=== PATIENT | male | born 1980 | race Caucasian/White ===

== ENCOUNTER 2023-11-14 07:00 | Emergency (ER) | payer OTHER, SELFPAY ==
[2023-11-14] VITALS (21 sets, daily range): BP systolic 160–197; BP diastolic 92–116; PULSE 75; RESP 18; TEMP 36.3–36.7; O2SAT 84–97
--- NOTE | ~2023-11-14 | CT_ITS ---
CT of the Abdomen and Pelvis: Indication: Abdominal pain Technique: 2.5 mm axial scans were obtained through the abdomen and pelvis following intravenous adm inistration of 100 cc of Omnipaque 350. Dose reduction technique was used on this scan by utilizing a utomated exposure control and iterative reconstruction technique. The dose-length product (DLP) was 1 706.18 mGy-cm. Findings: Scans through the lung bases are unremarkable. The liver, spleen, pancreas, adrenals and kidneys are within normal limits. No evidence of aortic an eurysm. Gallbladder is somewhat distended, questionable minimal wall thickening or adjacent inflammat ory change near the neck. There are mildly prominent elena hepatis/peripancreatic lymph nodes, nonspe cific.. No bowel obstruction. Questionable wall thickening distal sigmoid colon/rectum versus underdistention .. Images through the pelvis were performed. Urinary bladder unremarkable. No pelvic mass seen. No ascit es. Impression: Questionable minimal gallbladder wall thickening and/or inflammatory change near the gallbladder neck . Correlate clinically. Consider ultrasound and/or HIDA scan for further evaluation as indicated. Mild prominent elena hepatis/peripancreatic lymph nodes, nonspecific, most likely reactive. Questionable wall thickening distal sigmoid colon/rectum versus underdistention. Correlate for any po ssibility of colitis, or less likely, neoplastic disease. Reviewed, dictated and finalized at [facility]. FOLDER Impression: Questionable minimal gallbladder wall thickening and/or inflammatory change jose r the gallbladder neck. Correlate clinically. Consider ultrasound and/or HIDA s can for further evaluation as indicated. Mild prominent elena hepatis/peripancreatic lymph nodes, nonspecific, most like ly reactive. Questionable wall thickening distal sigmoid colon/rectum versus underdistention . Correlate for any possibility of colitis, or less likely, neoplastic disease.
--- NOTE | ~2023-11-14 | US_ITS ---
US abdomen limited DATE: 11/14/2023 08:52 INDICATION: Abdominal pain TECHNIQUE: Real-time imaging of liver, pancreas, gallbladder areas COMPARISON: 11/14/2023 CT abdomen pelvis FINDINGS: The pancreas is obscured. There are multiple filling defects with shadowing in the gallbladder lumen consistent with cholelithi asis. The gallbladder is moderately distended with wall thickness measuring up to 4.4 mm. Sonographic Cuenca sign is negative. The patient is reportedly on pain medication, which limits the value of thi s sign. Hepatic steatosis. Normal hepatopedal portal venous flow direction. The common bile duct is of normal caliber. IMPRESSION: Cholelithiasis Gallbladder wall thickening; consider acute cholecystitis Hepatic steatosis Reviewed, dictated and finalized at [facility]. Reviewed, dictated and finalized at [facility]. N FARMWORKER
--- NOTE | 2023-11-14 07:12 | ECG_ITS ---
Measurements Intervals [place] Rate: 73 P: -1 CA: 189 QRS: -7 QRSD: 85 T: 14 QT: 369 QTc: 408 Interpretive Statements SINUS RHYTHM VOLTAGE CRITERIA FOR LVH BORDERLINE ECG NO PREVIOUS ECG AVAILABLE FOR COMPARISON Electronically Signed On 11-14-2023 9:10:03 MEDICAL LAB SCIENTIST by Alok Russell D.O.
[2023-11-14] MEDS: ONDANSETRON INJ 4 MG/2 ML VIAL IV PUSH (07:18)
[2023-11-14] MEDS: SODIUM CHLORIDE 0.9% IV 1,000 ML 999 ML IV CONT (07:22)
[2023-11-14 07:24] LABS: Basophils Absolute Auto 0.02 K/mm3 (0.00-0.10); Basophils Percent Auto 0.5 % (0.0-1.0); Eosinophils Absolute Auto 0.06 K/mm3 (0.02-0.50); Eosinophils Percent Auto 1.4 % (1.0-6.0); Hematocrit 45.4 % (40.0-54.0); Hemoglobin 15.8 g/dL (14.0-18.0); Immature Granulocyte Absolute 0.01 K/mm3 (0.00-0.00); Immature Granulocyte Percent A 0.2 % (0.0-0.0); Immature Platelet Fraction Pct 2.4 % (1.0-7.0); Lymphocytes Absolute Auto 0.83 K/mm3 (1.10-4.50); Mean Corpuscular HGB Conc 34.8 g/dL (32.0-36.0); Mean Corpuscular Hemoglobin 30.6 pg (27.0-31.0); Mean Corpuscular Volume 87.8 fL (78.0-102.0); Mean Platelet Volume 10.1 fl (8.7-11.0); Monocytes Absolute Auto 0.21 K/mm3 (0.10-0.90); Monocytes Percent Auto 5.1 % (2.0-11.0); Neutrophils Percent Auto 72.8 % (50.0-70.0); Platelet Count Result 60 K/mm3 (150-420); Red Blood Count 5.17 M/mm3 (4.70-6.10); Red Cell Distribution Width 12.3 % (11.6-14.4); White Blood Count 4.1 K/mm3 (4.8-10.8)
[2023-11-14 07:34] LABS: Appearance Urine Clear (Clear); Bilirubin Urine 1+ (Negative); Blood Urine 1+ (Negative); Color Urine Yellow (Yellow); Glucose Urine UA Negative (Negative); Ketones Urine 1+ (Negative); Leukocyte Esterase Ur Negative LEU/UL (Negative); Nitrate Urine Negative (Negative); Protein Urine 1+ (Negative); Specific Grav Ur >= 1.030 (1.010-1.020); pH Urine 5.5 (5.0-8.0)
[2023-11-14] MEDS: MORPHINE SULFATE (*CRX) 4 MG/ML INJ IV PUSH (07:35)
[2023-11-14 07:37] LABS: INR 0.9; Prothrombin Time 10.2 Seconds (9.50-12.10)
[2023-11-14 07:42] LABS: Add Urine Microscopic? YES; Bacteria Urine Trace /hpf; WBC Urine None seen /hpf (0-3)
[2023-11-14 07:43] LABS: Lactic Acid Reflex 1.9 mmol/L (0.4-2.0)
[2023-11-14 07:44] LABS: Alanine Aminotransferase 52 U/L (16-63); Albumin Level 3.7 g/dL (3.4-5.0); Alkaline Phosphatase 71 U/L (46-116); Anion Gap 12 mmol/L (8-16); Aspartate Amino Transferase 21 U/L (15-37); Bilirubin,Total 0.5 mg/dL (0.00-1.00); Blood Urea Nitrogen 18 mg/dL (7-18); Calcium 8.8 mg/dL (8.5-10.1); Carbon Dioxide 25 mmol/L (21-32); Chloride 101 mmol/L (98-108); Estimated CRCL calculation 119 ml/min; Estimated Glomerular Filt Rate > 60; Glucose 167 mg/dL (70-99); Lipase 74 U/L (16-77); Osmolality Calculated 291 mOsm/kg (285-295); Potassium 3.8 mmol/L (3.5-5.1); Sodium 138 mmol/L (136-145); Total Protein 7.5 g/dL (6.4-8.2); Troponin I 6.2 ng/L (0.00-60.4)
[2023-11-14 08:19] LABS: Influenza A QL RT-PCR Negative (Negative); Influenza B QL RT-PCR Negative (Negative); RSV RNA, RT-PCR Negative (Negative); SARS-CoV-2 RNA PCR Negative (Negative)
--- NOTE | 2023-11-14 08:52 | ED.ABDPAIN ---
HPI - Abdominal Pain General Chief Complaint: Abdominal Pain Stated Complaint: abdominal pain Time Seen by Provider: 11/14/23 07:08 Source: patient and family Mode of arrival: ambulatory Limitations: no limitations History of Present Illness HPI narrative: this is male of hypertension that presents with a 4 day history pain with nausea loose stools , fevers at home ,with no chest pain shortness. Been having symptoms over the last 4 days just getting worse unable to and did not take his blood pressure medication because of the nausea and vomiting. Patient with no flank pain no dysuria no hematuria MD elicited complaint: abdominal pain Onset (ago): day(s) Pain Consistency: constant Location: diffuse Severity: severe Pain scale (0-10): 8 Quality: cramping Migration to: no migration Exacerbating factors: vomiting Related Data Home Medications Medication Instructions Recorded Confirmed citalopram 40 mg tablet 40 mg PO DAILY 11/14/23 11/14/23 metoprolol succinate 50 mg 50 mg PO DAILY 11/14/23 11/14/23 tablet,extended release 24 hr Allergies Allergy/AdvReac Type Severity Reaction Status Date / Time No Known Allergies Allergy Verified 11/14/23 07:14 Review of Systems Review of Systems: All systems reviewed & are unremarkable except as noted in HPI and below PMFSH Past Medical History Medical History HTN (hypertension) Exam Const: General: healthy appearing and no acute distress Nutritional Appearance: obese Orientation/consciousness: patient oriented x3 Limitations: no limitations Chest: Chest palpation & inspection: normal inspection of the chest Resp: Effort & Inspection: normal respiratory effort Auscultation: clear to auscultation bilaterally Cardio: Rate: regular rate Rhythm: regular rhythm GI: GI Palp: Yes Soft to palpation and Yes Tenderness to palpation present (GI) Auscultation: normal bowel sounds Other: diffuse abdominal tenderness but hard to elicit but with deep inspiration was having right upper quadrant pain consistent with a positive Cuenca sign. : General: Yes bladder normal to palpation Skin: General skin exam: normal color Rashes: no rashes Neuro: General: patient oriented x3, moves all extremities and no meningeal signs Extrem: General: normal to inspection and no clubbing, cyanosis or edema Psych: Mental Status: mental status grossly normal Course Course Emergency Course: patient received IV fluids and pain control with morphine and control of his nausea vomiting with Zofran after reassessment patient states that abdominal pain has eased. Patient had a CT scan which shows mild dilatation of the gallbladder and ultrasound of the gallbladder recommended, otherwise CT scan did show some inflammation of consistent with a colitis. Patient had a blood workup that was unremarkable with normal white count and COVID influenza RSV negative. ultrasound performed consistent with some acute cholecystitis. patient with a normal white count, spoke with surgery at [facility] and feels that he can go home with pain control and follow-up with surgery at [facility] on Saturday. Vital Signs Vital signs: Vital Signs Temperature 36.3 C L 11/14/23 07:00 Pulse Rate 75 11/14/23 07:00 Respiratory Rate 18 11/14/23 07:00 Blood Pressure 160/104 H 11/14/23 07:00 Pulse Oximetry 96 11/14/23 07:00 Oxygen Delivery Room Air 11/14/23 07:00 Temperature 36.3 C L 11/14/23 07:00 Pulse Rate 75 11/14/23 07:00 Respiratory Rate 18 11/14/23 07:00 Blood Pressure 160/104 H 11/14/23 07:00 Pulse Oximetry 96 11/14/23 07:00 Oxygen Delivery Room Air 11/14/23 07:00 MDM - Abdominal Pain Lab Data 11/14/23 07:12 11/14/23 07:12 Labs: Lab Results 11/14/23 11/14/23 Range/Units 07:12 07:14 WBC 4.1 L (4.8-10.8) K/mm3 RBC 5.17 (4.70-6.10) M/mm3 Hgb 15.8 (14
[2023-11-14] MEDS: HYDROmorphone HCL INJ (*CRX) 2 MG/ML VIAL 1 MG IV PUSH (09:22)
--- NOTE | 2023-11-14 10:35 | PC.NURSE ---
blood cultures obtained, RN to start antibiotics now.
[2023-11-14] MEDS: PIPERACILLN/TAZ 3.375GM/NS50ML 3.375 GM/50 ML BAG IVPB (10:36)
--- NOTE | 2023-11-20 12:46 | PC.NURSE ---
FINAL BLOOD CULTURE RESULTS X2: NO GROWTH AFTER 5 DAYS. NO ACTION NEEDED.
== END 2023-11-14 11:15 | disposition home or self-care (01) ==
PROVIDERS: Emergency Provider Emergency Medicine; PCP Family Medicine
DX: K81.9 Cholecystitis, unspecified (principal); I10 Essential (primary) hypertension; Z79.899 Other long term (current) drug therapy; Z20.822 Contact with and (suspected) exposure to COVID-19
CPT/HCPCS: 36415; 74177; 76705; 80053; 81001; 83605; 83690; 84484; 85025; 85055; 85610; 85730; 87040; 87637; 93005; 96361; 96365; 96375; 99284; J1170; J2270; J2405; J2543; J7030; Q9967

== ENCOUNTER 2023-11-20 01:20 | Day surgery (SDC) | payer OTHER, SELFPAY ==
[2023-11-18 15:37] VITALS: BMI 40.2
--- NOTE | 2023-11-18 15:38 | PC.NURSE ---
Report to the Outpatient Waiting Room, entrance under the green pavilion located off [facility], at time 8:30 on date 11/20/23. Planned Procedure Time: 10:30. Time changes happen often and if your time is changed the preop area will call you the afternoon before. - You and your visitor will be asked to self-screen and do not enter if you have any COVID symptoms. - A mask is optional within the hospital at this time. Patients may have clear liquids (water, carbonated beverages, clear teas, apple juice) until 3 hours prior to surgery (7:30) with a maximum of 20 ounces. - No food from midnight until time of surgery Take the following medications with a SIP of water the morning of surgery: CITALOPRAM, METOPROLOL, PAIN PILL IF NEEDED DO NOT STOP ANY OF YOUR OTHER PRESCRIPTION MEDICATIONS PRIOR TO SURGERY ?EXCEPT THE FOLLOWING Medications to discontinue per physician: N/A Date to take last dose: N/A Please no make-up, nail portuguese, hairspray, perfume, deodorant, or body powder the day of surgery. No jewelry (including any body piercings) or valuables the day of surgery, leave them at home. Please take a shower or bath the night before, or the morning of, surgery with an antibacterial soap. Wear comfortable, loose fitting clothing. - Jewelry must be removed prior to entering the operating room. Rings and piercings that are not removed may be cut off. - The hospital will not accept responsibility for valuables. - Please leave all valuables, including medications, at home the day of surgery. If you are going home after surgery, a licensed auto parts delivery driver must drive you home. - NO public transportation without another adult if you receive anesthesia. - We recommend that an adult stay with you for 24 hours following discharge. - We also recommend that you do not drive, make important decision, drink alcoholic beverages, or take any drugs that were not prescribed by your health care provider for at least 24 hours after your discharge time. Follow any additional instructions given to you from your surgeon. If you or anyone in your household have experienced Covid symptoms in the past week, please notify your surgeon or the nurse liaison at the phone number below for possible testing. Telephone instructions given to PT - PIERRE BUTCHER and asked if any additional questions and then verbalized understanding. Patient advised to call surgeon office or pre surgery nurse liaison [phone] if any additional questions.
--- NOTE | 2023-11-19 14:54 | P.PNAN_ITS ---
Anes - Initial Pre Proc Eval Procedure: Operation Date: 11/20/23 10:30 Proposed Procedures p Laparoscopic Cholecystectomy - Jerrell Hills MD Date/Time: 11/19/23 14:54 Surgeon: Jerrell Hills MD Pre Op Diagnosis: acute cholecystitis with stones Patient Data Age: 42 Gender: M Height: 1.91 m Weight: 146 kg Allergies Allergy/AdvReac Type Severity Reaction Status Date / Time No Known Allergies Allergy Verified 11/20/23 08:30 Home Medications Medication Instructions Recorded Confirmed Type citalopram 40 mg tablet 40 mg PO DAILY 11/14/23 11/19/23 History metoprolol succinate 50 mg 50 mg PO DAILY 11/14/23 11/19/23 History tablet,extended release 24 hr ondansetron 4 mg disintegrating 4 mg PO Q6H PRN nausea and 11/14/23 11/19/23 Rx tablet vomiting #14 tabs oxycodone-acetaminophen 5 mg-325 1 tablet PO Q4H PRN pain #30 tabs 11/14/23 11/19/23 Rx mg tablet (Percocet) Patient hx anesthesia problems: none Family hx anesthesia problems: none Results Review: All pre-operative results and documents have been reviewed as part of the pre- operative evaluation. [facility] Past Medical History Medical History (Updated 11/19/23 @ 14:54 by Robert Gar DO) Anxiety Depression GERD (gastroesophageal reflux disease) HTN (hypertension) Social History Social History (Updated 11/20/23 @ 09:48 by Robert Gar DO) Smoking packs per day: 1 Smoking cigarettes per day: 20.0 Years smoked: 6 Smoking pack-years: 6.00 Smoking status: Former smoker Tobacco type: cigarettes Smokeless tobacco user: chewing tobacco Smoking end date: 11/04/04 Alcohol intake: current Alcohol use details: RARE Substance use: current Substance use type: marijuana Other substance usage details: daily Living arrangements: with family Spiritual care concerns: No Anes - Eval Final PreProcedure Day of Procedure 11/19/23 14:54 Patient weight: morbidly obese Heart: regular rate and rhythm Lungs: clear to auscultation Airway: Mallampati scale class III Neurological: alert and oriented Last oral intake: >/= 8 hours ASA classification: III Emergent: no Anesthetic plan: proceed Anesthesia type and monitoring: general ETT and standard monitoring Results Review: All pre-operative results and documents have been reviewed as part of the pre- operative evaluation. Informed Consent: The patient's anesthetic plan and its attendant risks and benefits were discussed with the patient/family/POA. Questions were solicited and answers provided to the satisfaction of the patient/family/POA.
[2023-11-20] VITALS (7 sets, daily range): BP systolic 105–154; BP diastolic 52–90; PULSE 71–92; RESP 14–18; TEMP 36.2; O2SAT 92–98
[2023-11-20] MEDS: ACETAMINOPHEN 500 MG TABLET 1000 MG PO (08:43)
[2023-11-20] MEDS: LACTATED RINGERS 1,000 ML 30 ML IV CONT ×2 (08:50→11:38)
[2023-11-20 09:12] LABS: Alanine Aminotransferase 35 U/L (6-50); Albumin Level 4.4 g/dL (3.5-5.1); Alkaline Phosphatase 71 U/L (38-126); Amylase 100 U/L (30-110); Aspartate Amino Transferase 26 U/L (17-59); Bilirubin,Total 0.6 mg/dL (0.2-1.3); Lipase 239 U/L (23-300)
[2023-11-20] MEDS: KETOROLAC 15 MG/ML VIAL (*BKC) IV PUSH (09:36)
--- NOTE | 2023-11-20 09:38 | WPDHPUPDATE1 ---
History and Physical Update Update Date/Time: 11/20/23 09:38 History and Physical has been reviewed, including an updated exam of the patient. There are NO changes in the patient's condition. Risks, benefits, and alternatives have been discussed and questions answered. Patient agrees to proceed with procedure.
[2023-11-20] MEDS: ceFAZolin 3 GM/D5W 100 ML 100 ML IVPB (10:10)
[2023-11-20] MEDS: BUPIVACAINE/EPINEPHRINE 0.5% 30 ML VIAL INFILTRATE (10:36)
--- NOTE | 2023-11-20 11:42 | W.PM.PROC2 ---
Procedure Note - Detailed Date of Procedure 11/20/23 Pre-op Diagnosis acute cholecystitis with stones Post-op Diagnosis Other (Chronic cholecystitis with cholelithiasis) Procedure Performed Laparoscopic cholecystectomy Surgeon Jerrell Hills MD Watch Electrician Delia Rich [facility] Anesthesia General and Local Indications Patient has had severe diffuse abdominal pain associated with nausea vomiting. He has had this in the past but it went away on its own. He presented to the emergency room at [facility] on November 14 with a 4 day history of diffuse abdominal pain vomiting diarrhea and fever. Imaging suggested acute cholecystitis. Patient improved with some analgesics. He was seen in the office earlier this week. He was still having pain with some right upper quadrant tenderness. He is taken to surgery now for laparoscopic cholecystectomy for acute cholecystitis with gallstones. Findings Findings were more consistent with chronic cholecystitis. The gallbladder wall was very thickened. There was chronic inflammation in the cholecystohepatic triangle making that dissection more difficult and a little more bloody. There was no biliary ductal dilatation. Liver appeared to have some fatty change. Description of Procedure Patient was taken to surgery and induced into general anesthesia. The abdomen is prepped and draped. The varies needle was used to insufflate the abdomen prior to placing any trocars. Trocars were then placed using [employer] optical trocars and a 5 mm camera. With the trocars in position the abdomen was insufflated and the patient was placed in reverse Trendelenburg. The gallbladder was thickened but did not have signs of acute inflammation. I tried to decompress the gallbladder with a laparoscopic aspirator. The bile in the gallbladder however was very thick and very little would come out with aspiration. The cholecystotomy was closed with a Vicryl endoloop. The gallbladder was then retracted anterosuperiorly. There were some dense adhesions in the area of the infundibulum. These were taken down using cautery and gentle dissection. Eventually I was able to locate the cystic duct and cystic artery. Cautery was used to take down adhesions associated with these which avoided any significant blood loss. This dissection was continued until we had a reasonable length of cystic duct and cystic artery to clip. The gallbladder was dissected off the liver at its lower 3rd. Critical view was achieved. I securely clipped and divided both the cystic duct and cystic artery. The peritoneum around the remainder of the gallbladder was very thickened, more in a chronic fashion than acute. I dissected the peritoneal attachments of the gallbladder to the liver. I also dissected the gallbladder from the gallbladder fossa of the liver. Cautery was used for hemostasis. Eventually the gallbladder was completely freed from the liver. I checked the gallbladder fossa and did a bit more cautery to achieve good hemostasis. The gallbladder was then placed in an Endo-Catch bag and was retrieved via the 10 11 epigastric trocar site. The skin incision here had to be enlarged and the fascia dilated to accommodate the gallbladder with its thickened wall. Eventually the gallbladder was removed. The epigastric trocar was replaced. A towel clip was used to occlude the skin and subcutaneous so that insufflation could be maintained. We then reviewed the right upper quadrant and gallbladder fossa. Irrigation and suctioning were carried out at least 3 times. There was no evidence of any bleeding or bile leakage. We then evacuated CO2 and removed the trocar sleeves. I closed the fascia with an 0 Vicryl suture and [id number] and mattress fashion at the epigastric trocar site. The subcutaneous at the epigastric trocar site was closed with interrupted 3-0 Vicryl suture. Skin was closed with interrupted subcuticular 3-0 Vicryl skin sutu
[2023-11-20] MEDS: oxyCODONE HCL (*CRX) 5 MG TAB IR PO (12:41)
== END 2023-11-20 13:18 | disposition home or self-care (01) ==
PROVIDERS: PCP Family Medicine; Visit Provider Surgery
PROC: 0FT44ZZ Resection of Gallbladder, Percutaneous Endoscopic Approach (ICD-10-PCS; CPT 47562; principal; 2023-11-20 10:30)
DX: K80.10 Calculus of gallbladder with chronic cholecystitis without obstruction (principal); I10 Essential (primary) hypertension; Z87.891 Personal history of nicotine dependence; E66.01 Morbid (severe) obesity due to excess calories; Z68.41 Body mass index [BMI] 40.0-44.9, adult
CPT/HCPCS: 47562; 36415; 80076; 82150; 83690; 88304; A9270; C1713; J0690; J1100; J1170; J1885; J2250; J2405; J2704; J3010; J7120

== ENCOUNTER 2024-03-12 20:51 | Observation (INO) | payer OTHER, SELFPAY ==
--- NOTE | ~2024-03-12 | CT_ITS ---
EXAMINATION: CT abdomen pelvis w con DATE: 03/12/2024 22:31 INDICATION: Abdominal pain TECHNIQUE: Computed tomography (CT) of the abdomen and pelvis was performed with 100 mL Omnipaque-350 intravenous contrast. Automated exposure control and iterative reconstruction technique were employe d. The dose-length product was 1601.60 mGy-cm. 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 Heart size is normal. No pericardial or pleural effusion. Diffuse hepatic steatosis. Cholecystect jaqui clips at gallbladder fossa. Spleen, pancreas, bilateral adrenal glands and kidneys are normal. Th ere is fluid scattered throughout the large and small bowel consistent with diarrhea. There is dilati on of a few loops of small bowel which tapers gradually distally without a discrete transition point to suggest obstruction and would favor either ileus or enteritis. There are few diverticula along the descending and sigmoid colon without adjacent from trace stranding to suggest diverticulitis. Normal appendix. Bladder is normal. No free intraperitoneal gas or fluid. No pathologically enlarged abdomi nal or pelvic lymphadenopathy. Chronic mild anterior wedging of a few lower thoracic vertebral bodies with mild spondylosis. IMPRESSION: 1. Scattered fluid throughout the large and small bowel with a few mildly dilated loops of small debra l which tapers gradually distally without a discrete transition point to suggest obstruction and woul d favor an ileus or enteritis. 2. Diffuse hepatic steatosis. Reviewed, dictated and finalized at [facility]. IMPRESSION: 1. Scattered fluid throughout the large and small bowel with a few mildly dilat ed loops of small bowel which tapers gradually distally without a discrete cortes sition point to suggest obstruction and would favor an ileus or enteritis. 2. Diffuse hepatic steatosis.
[2024-03-12 20:55] VITALS: BP 147/112; PULSE 95; RESP 20; TEMP 35.9; O2SAT 95
--- NOTE | 2024-03-12 21:02 | ECG_ITS ---
SEE SCANNED COPY FOR CONFIRMED REPORT MTDD
[2024-03-12] MEDS: ONDANSETRON INJ 4 MG/2 ML VIAL IV PUSH (21:17)
[2024-03-12] MEDS: MORPHINE SULFATE (*CRX) 4 MG/ML INJ IV PUSH ×2 (21:17→22:34)
[2024-03-12] MEDS: PANTOPRAZOLE SODIUM IV 40 MG VIAL IV PUSH (21:19)
[2024-03-12] MEDS: SODIUM CHLORIDE 0.9% IV 1,000 ML 999 ML IV CONT (21:20)
--- NOTE | 2024-03-12 21:20 | ED.ABDPAIN ---
HPI - Abdominal Pain General Chief Complaint: Abdominal Pain Stated Complaint: Abd Pain/Nauseated Time Seen by Provider: 03/12/24 20:57 Source: patient and family Mode of arrival: ambulatory Limitations: no limitations History of Present Illness HPI narrative: this is a 43-year-old male who presents with abdominal pain diffuse in location started 2 days ago with episodes of nausea with vomiting and has been having some mild diarrhea, there is no fever chills no chest pain no shortness of breath no flank pain no dysuria or hematuria . Patient recently had a cholecystectomy in early November of 2023 and has a history of hypertension. MD elicited complaint: abdominal pain Onset (ago): day(s) Pain Consistency: intermittent Location: diffuse Severity: moderate Pain scale (0-10): 7 Quality: cramping Migration to: periumbilical Exacerbating factors: nothing Relieving factors: nothing Associated symptoms: nausea, vomiting and diarrhea Related Data Home Medications Medication Instructions Recorded Confirmed citalopram 40 mg tablet 40 mg PO DAILY 11/14/23 03/12/24 metoprolol succinate 50 mg 50 mg PO DAILY 11/14/23 03/12/24 tablet,extended release 24 hr Allergies Allergy/AdvReac Type Severity Reaction Status Date / Time No Known Allergies Allergy Verified 11/20/23 08:30 Review of Systems Review of Systems: All systems reviewed & are unremarkable except as noted in HPI and below PMFSH Past Medical History Medical History Anxiety Depression GERD (gastroesophageal reflux disease) HTN (hypertension) Social History Social History Smoking packs per day: 1 Smoking cigarettes per day: 20.0 Years smoked: 6 Smoking pack-years: 6.00 Smoking status: Former smoker Tobacco type: cigarettes Smokeless tobacco user: chewing tobacco Smoking end date: 11/04/04 Alcohol intake: current Alcohol use details: RARE Substance use: current Substance use type: marijuana Other substance usage details: daily Living arrangements: with family Spiritual care concerns: No Exam Const: General: healthy appearing and no acute distress Nutritional Appearance: well nourished and obese Orientation/consciousness: patient oriented x3 Limitations: no limitations Eyes: Conjunctivae: conjunctivae normal Chest: Chest palpation & inspection: normal inspection of the chest Resp: Effort & Inspection: normal respiratory effort Auscultation: clear to auscultation bilaterally Cardio: Rate: regular rate Rhythm: regular rhythm GI: GI Palp: Yes Soft to palpation and Yes Tenderness to palpation present (GI) : General: Yes bladder normal to palpation Back/Spine/Pelvis: Back: no CVA tenderness Skin: General skin exam: normal color Rashes: no rashes Neuro: General: patient oriented x3, moves all extremities, no meningeal signs and no focal motor deficits Extrem: General: normal to inspection Psych: Mental Status: mental status grossly normal Affect: normal affect Course Course Emergency Course: Patient with abdominal pain received 4mg IV morphine and started on IV fluids as well as IV Zofran and Protonix. Had blood work performed and reviewed CT scan of abdomen pelvis performed and reviewed showing ileus versus enteritis with no clear transition point. We will admit under [facility] start on hospitalist with some IV fluids, bowel rest pain control with some Zofran for nausea vomiting. Vital Signs Vital signs: Vital Signs Temperature 35.9 C L 03/12/24 20:55 Pulse Rate 95 03/12/24 20:55 Respiratory Rate 20 03/12/24 20:55 Blood Pressure 147/112 H 03/12/24 20:55 Pulse Oximetry 95 03/12/24 20:55 Oxygen Delivery Room Air 03/12/24 20:55 Temperature 35.9 C L 03/12/24 20:55 Pulse Rate 95 03/12/24 20:55 Respiratory Rate 03/12/24 20:55 Bl
[2024-03-12 21:35] LABS: Basophils Absolute Auto 0.02 K/mm3 (0.00-0.10); Basophils Percent Auto 0.3 % (0.0-1.0); Eosinophils Absolute Auto 0.08 K/mm3 (0.02-0.50); Eosinophils Percent Auto 1.2 % (1.0-6.0); Hematocrit 49.6 % (40.0-54.0); Hemoglobin 16.6 g/dL (14.0-18.0); Immature Granulocyte Absolute 0.02 K/mm3 (0.00-0.00); Immature Granulocyte Percent A 0.3 % (0.0-0.0); Lymphocytes Absolute Auto 1.12 K/mm3 (1.10-4.50); Lymphocytes Percent Auto 16.8 % (18.0-42.0); Mean Corpuscular HGB Conc 33.5 g/dL (32-36); Mean Corpuscular Hemoglobin 29.2 pg (27.0-31.0); Mean Corpuscular Volume 87.2 fL (78.0-102.0); Mean Platelet Volume 9.9 fl (8.7-11.0); Monocytes Absolute Auto 0.83 K/mm3 (0.10-0.90); Monocytes Percent Auto 12.5 % (2.0-11.0); Neutrophils Absolute Auto 4.59 K/mm3 (1.70-7.20); Neutrophils Percent Auto 68.9 % (50.0-70.0); Platelet Count Result 316 K/mm3 (150-420); Red Blood Count 5.69 M/mm3 (4.70-6.10); Red Cell Distribution Width 12.7 % (11.6-14.4); White Blood Count 6.7 K/mm3 (4.8-10.8)
[2024-03-12 21:50] LABS: Partial Thromboplastin Time 25.1 Sec (23.9-30.70); Prothrombin Time 10.9 Seconds (9.50-12.1)
[2024-03-12 21:54] LABS: Alanine Aminotransferase 32 U/L (16-63); Albumin Level 3.6 g/dL (3.4-5.0); Alkaline Phosphatase 66 U/L (46-116); Anion Gap 13 mmol/L (4-12); Aspartate Amino Transferase 18 U/L (15-37); Bilirubin,Total 0.5 mg/dL (0.00-1.00); Blood Urea Nitrogen 18 mg/dL (7-18); Calcium 9.1 mg/dL (8.5-10.1); Carbon Dioxide 26 mmol/L (21-32); Chloride 100 mmol/L (98-108); Estimated CRCL calculation 116 ml/min; Estimated Glomerular Filt Rate > 60; Glucose 114 mg/dL (70-99); Lipase 38 U/L (16-77); Osmolality Calculated 290 mOsm/kg (285-295); Potassium 3.5 mmol/L (3.5-5.1); Sodium 139 mmol/L (136-145); Total Protein 7.3 g/dL (6.4-8.2)
[2024-03-12 21:56] LABS: Lactic Acid Reflex 1.1 mmol/L (0.4-2.0)
[2024-03-12 21:58] LABS: Troponin I < 4.0 ng/L (0.00-60.4)
[2024-03-12 22:00] VITALS: BP 126/100; PULSE 85; RESP 18; O2SAT 95
[2024-03-12 22:11] LABS: SARS-CoV-2 RNA PCR Negative (Negative)
[2024-03-12 22:26] LABS: Influenza A QL RT-PCR Negative (Negative); Influenza B QL RT-PCR Negative (Negative); RSV RNA, RT-PCR Negative (Negative)
--- NOTE | 2024-03-12 22:29 | PC.NURSE ---
Pt returns from CT and c/o increasing abd pain again that is uncomfortable. He denies any n/v but states pain is sharp and constant. Order for pain med received from Dr Wood.
[2024-03-12 22:54] VITALS: BP 136/95; PULSE 84; PULSE 86; RESP 16; RESP 18; O2SAT 96
--- NOTE | 2024-03-12 22:55 | PC.NURSE ---
ERP spoke c pt and about CT scan dx and POC for admit. Pt resting, VSS. No c/o at this time.
[2024-03-12 23:00] LABS: Appearance Urine Clear (Clear); Bilirubin Urine 1+ (Negative); Blood Urine Trace-intact (Negative); Color Urine Yellow (Yellow); Glucose Urine UA Negative (Negative); Ketones Urine 1+ (Negative); Leukocyte Esterase Ur Negative LEU/UL (Negative); Nitrate Urine Negative (Negative); Protein Urine 1+ (Negative); pH Urine 6.5 (5.0-8.0)
--- NOTE | 2024-03-12 23:08 | PC.NURSE ---
Call placed to [facility], bed assignment for pt to go to Rm [id number] received. Pt and family informed.
[2024-03-12 23:10] LABS: Add Urine Microscopic? YES; Bacteria Urine Trace /hpf; Mucus Urine Few /lpf; RBC Urine 0-2 /hpf (0-2); Squamous Epithelial Cell Urine None seen /hpf (Few); WBC Urine 0-3 /hpf (0-3)
--- NOTE | 2024-03-12 23:12 | PC.NURSE ---
ED SBAR reviewed and printed by this nurse.
[2024-03-12 23:25] VITALS: BP 136/85; PULSE 85; RESP 18; TEMP 36.8; O2SAT 96
[2024-03-12 23:33] VITALS: BMI 37.3
[2024-03-12] MEDS: DEXTROSE 5%/0.45% SOD CHL 1,000 ML 100 ML IV CONT (23:58)
[2024-03-13] VITALS: BP 174/99; PULSE 84; RESP 16; TEMP 36.6; O2SAT 96
[2024-03-13] MEDS: MORPHINE SULFATE (*CRX) 2 MG/ML INJ IV PUSH ×5 (00:02→19:33)
[2024-03-13 06:00] VITALS: BP 148/86; PULSE 76; RESP 16; TEMP 36.7; O2SAT 96
[2024-03-13 08:00] VITALS: BP 145/82; PULSE 80; RESP 14; TEMP 36.6; O2SAT 96
[2024-03-13 08:56] LABS: Basophils Absolute Auto 0.03 K/mm3 (0.00-0.10); Basophils Percent Auto 0.5 % (0.0-1.0); Eosinophils Absolute Auto 0.18 K/mm3 (0.02-0.50); Eosinophils Percent Auto 3.3 % (1.0-6.0); Hematocrit 45.4 % (40.0-54.0); Hemoglobin 15.2 g/dL (14.0-18.0); Immature Granulocyte Absolute 0.02 K/mm3 (0.00-0.00); Immature Granulocyte Percent A 0.4 % (0.0-0.0); Lymphocytes Absolute Auto 0.83 K/mm3 (1.10-4.50); Lymphocytes Percent Auto 15.2 % (18.0-42.0); Mean Corpuscular HGB Conc 33.5 g/dL (32-36); Mean Corpuscular Hemoglobin 29.2 pg (27.0-31.0); Mean Corpuscular Volume 87.3 fL (78.0-102.0); Mean Platelet Volume 9.9 fl (8.7-11.0); Monocytes Absolute Auto 0.57 K/mm3 (0.10-0.90); Monocytes Percent Auto 10.4 % (2.0-11.0); Neutrophils Absolute Auto 3.83 K/mm3 (1.70-7.20); Neutrophils Percent Auto 70.2 % (50.0-70.0); Platelet Count Result 258 K/mm3 (150-420); Red Cell Distribution Width 12.8 % (11.6-14.4); White Blood Count 5.5 K/mm3 (4.8-10.8)
--- NOTE | 2024-03-13 09:00 | PM.IMHP ---
H&P: HPI History of Present Illness Date/Time: 03/13/24 09:00 Chief Complaint: abdominal pain, nausea, vomiting, diarrhea Narrative: This is a 43-year-old male with a significant past medical history of hypertension, anxiety, GERD, depression who presented to the hospital with diffuse abdominal pain, nausea, vomiting, diarrhea. Patient reports that his symptoms started on Saturday night when he when out to have dinner with friends however he started having diffuse abdominal pain. He had his picked him up and later that night patient had fever and chills, 1 episode of vomiting and 1 episode of diarrhea. his symptoms did not get any better and he states the diffuse abdominal pain was similar to when he had his gallbladder attack and had his gallbladder removed. He denies any sick contacts. Patient denies any fever, chills, vomiting, diarrhea, chest pain, shortness a breath. Patient endorses a headache and diffuse abdominal pain. Workup in the hospital included abdomen/pelvis CT which showed scattered fluid throughout the large and small bowel with a few mildly dilated loops of small bowel which tapers gradually distally without a discrete transition point to suggest obstruction and would favor an ileus or enteritis, diffuse hepatic steatosis. Initial labs showed a normal white blood cell count of 6.7, blood glucose of 114, negative troponin, lipase was 38. UA was performed and showed 1+ urine protein, 1+ urine ketone, trace urine blood, 1+ urine bilirubin. Respiratory panel was negative for influenza a and B, RSV, and COVID. Blood cultures were obtained and are pending. Patient was given 1 L of normal saline, Zofran, Protonix, and morphine while in the ED. His blood pressures were noted to be elevated however after talking with his she states that he has not taken his blood pressure medicine since Saturday as he has not been feeling while and this is likely rebound hypertension. Patient was restarted on his metoprolol. Review of Systems Review of Systems: All systems reviewed & are unremarkable except as noted in HPI and below Constitutional: Constitutional: Reports as per HPI and Reports no additional constitutional complaints Eyes: Eyes: Reports as per HPI and Reports no additional eye complaints ENT: Reports system reviewed and no additional complaints, except as documented and Reports as per HPI Cardiovascular: Cardiovascular: Reports as per HPI and Reports no additional cardiovascular complaints Respiratory: Respiratory: Reports as per HPI and Reports no additional respiratory complaints Gastrointestinal: Gastrointestinal: Reports as per HPI and Reports no additional gastrointestinal complaints Genitourinary: Genitourinary: Reports no additional male genitourinary complaints and Reports as per HPI Musculoskeletal: Musculoskeletal: Reports no additional musculoskeletal complaints and Reports as per HPI Integumentary/Breasts: Skin/Breast: Reports system reviewed and no additional complaints, except as docu and Reports as per HPI Neurologic: Reports system reviewed and no additional complaints, except as documented and Reports as per HPI Psychiatric: Psychiatric: Reports no additional psychiatric complaints and Reports as per HPI PMFSH Past Medical History Medical History Anxiety Depression GERD (gastroesophageal reflux disease) HTN (hypertension) Social History Social History Smoking packs per day: 1 Smoking cigarettes per day: 20.0 Years smoked: 17 Smoking pack-years: 17.00 Smoking status: Former smoker Tobacco type: cigarettes Smokeless tobacco user: chewing tobacco Second hand tobacco smoke exposure: No Smoking end date: 11/04/13 Alcohol intake: former Alcohol use details: RARE Substance use: current Substance use type: marijuana Other substance usage details: daily
[2024-03-13 09:15] LABS: Alanine Aminotransferase 36 U/L (16-63); Albumin Level 3.2 g/dL (3.4-5.0); Alkaline Phosphatase 58 U/L (46-116); Anion Gap 8 mmol/L (4-12); Aspartate Amino Transferase 21 U/L (15-37); Bilirubin,Total 0.5 mg/dL (0.00-1.00); Blood Urea Nitrogen 16 mg/dL (7-18); Calcium 8.3 mg/dL (8.5-10.1); Carbon Dioxide 29 mmol/L (21-32); Chloride 102 mmol/L (98-108); Estimated CRCL calculation 126 ml/min; Estimated Glomerular Filt Rate > 60; Glucose 102 mg/dL (70-99); Osmolality Calculated 289 mOsm/kg (285-295); Potassium 3.5 mmol/L (3.5-5.1); Sodium 139 mmol/L (136-145); Total Protein 6.6 g/dL (6.4-8.2)
[2024-03-13 09:31] VITALS: PULSE 80
[2024-03-13] MEDS: CITALOPRAM HYDROBROMIDE 20 MG TABLET 40 MG PO (09:31)
[2024-03-13] MEDS: METOPROLOL SUCCINATE EXT REL 50 MG TABCR PO (09:31)
[2024-03-13] MEDS: ACETAMINOPHEN 325 MG TABLET 650 MG PO ×2 (09:31→16:46)
[2024-03-13 09:50] LABS: Cholesterol 124 mg/dL (0-200); HDL Direct 32 mg/dL (40-60); LDL Cholesterol Calculated 75 mg/dL (<130); Triglycerides 83 mg/dL (0-150)
[2024-03-13 09:53] LABS: Hemoglobin A1C 5.6 % (<5.7)
[2024-03-13] MEDS: DEXTROSE 5%/0.45% SOD CHL 1,000 ML 100 ML IV CONT ×2 (10:19→21:41)
[2024-03-13 16:30] VITALS: BP 122/84; PULSE 74; RESP 16; TEMP 35.9; O2SAT 94
[2024-03-13] MEDS: ONDANSETRON INJ 4 MG/2 ML VIAL IV PUSH (16:47)
[2024-03-13 20:00] VITALS: PULSE 74; RESP 16; O2SAT 94
[2024-03-13] MEDS: MIRTAZAPINE 7.5 MG TABLET PO (21:40)
[2024-03-14] VITALS: BP 112/81; PULSE 73; RESP 17; TEMP 36.2; O2SAT 96
[2024-03-14 05:20] LABS: Hematocrit 42.4 % (40.0-54.0); Hemoglobin 14.1 g/dL (14.0-18.0); Mean Corpuscular HGB Conc 33.3 g/dL (32-36); Mean Corpuscular Hemoglobin 29.2 pg (27.0-31.0); Mean Corpuscular Volume 87.8 fL (78.0-102.0); Mean Platelet Volume 9.4 fl (8.7-11.0); Platelet Count Result 246 K/mm3 (150-420); Red Blood Count 4.83 M/mm3 (4.70-6.10); Red Cell Distribution Width 12.7 % (11.6-14.4)
[2024-03-14 05:36] LABS: Alanine Aminotransferase 66 U/L (16-63); Albumin Level 3.1 g/dL (3.4-5.0); Alkaline Phosphatase 57 U/L (46-116); Anion Gap 6 mmol/L (4-12); Aspartate Amino Transferase 33 U/L (15-37); Bilirubin,Total 0.4 mg/dL (0.00-1.00); Blood Urea Nitrogen 10 mg/dL (7-18); Calcium 8.6 mg/dL (8.5-10.1); Carbon Dioxide 33 mmol/L (21-32); Chloride 104 mmol/L (98-108); Estimated CRCL calculation 121 ml/min; Estimated Glomerular Filt Rate > 60; Glucose 95 mg/dL (70-99); Osmolality Calculated 295 mOsm/kg (285-295); Potassium 3.7 mmol/L (3.5-5.1); Sodium 143 mmol/L (136-145); Total Protein 6.3 g/dL (6.4-8.2)
[2024-03-14 05:38] LABS: Band Neutrophils Percent 0 % (0-6); Basophils Absolute Manual 0.04 K/mm3 (0-0.1); Basophils Percent Manual 1 % (0-1); Eosinophils Absolute Manual 0.24 K/mm3 (0.02-0.50); Eosinophils Percent Manual 6 % (1-6); Lymphocytes Absolute Manual 1.52 K/mm3 (1.1-4.5); Lymphocytes Percent Manual 38 % (18-44); Monocytes Absolute Manual 0.56 K/mm3 (0.1-0.90); Monocytes Percent Manual 14 % (3-9); Neutrophils Absolute Manual 1.64 K/mm3 (1.3-6.7); Neutrophils Percent Manual 41 % (46-73); Platelet Estimate Adequate (Adequate); Total Cells Counted 100
[2024-03-14 08:00] VITALS: BP 141/97; PULSE 76; RESP 76; TEMP 36.4; O2SAT 93
[2024-03-14] MEDS: DEXTROSE 5%/0.45% SOD CHL 1,000 ML 100 ML IV CONT (08:19)
[2024-03-14] MEDS: ACETAMINOPHEN 325 MG TABLET 650 MG PO (08:22)
[2024-03-14] MEDS: ENOXAPARIN 40 MG/0.4 ML SYRINGE SUB-Q (08:23)
[2024-03-14 08:24] VITALS: PULSE 73
[2024-03-14] MEDS: METOPROLOL SUCCINATE EXT REL 50 MG TABCR PO (08:24)
[2024-03-14] MEDS: CITALOPRAM HYDROBROMIDE 20 MG TABLET 40 MG PO (08:24)
--- NOTE | 2024-03-14 12:05 | PM.DS ---
DS: Admitting Diagnosis Discharge Date 03/14/2024 Admitting Diagnosis ileus, abdominal pain, hypertension, depression, anxiety, morbid obesity bmi 40-44.9 DS: Discharge Diagnosis Discharge Diagnosis (1) Ileus: Code(s): K56.7 - Ileus, unspecified Status: Acute (2) Enteritis: Code(s): K52.9 - Noninfective gastroenteritis and colitis, unspecified Status: Acute (3) HTN (hypertension): Code(s): I10 - Essential (primary) hypertension Status: Acute (4) Morbid obesity with BMI of 40.0-44.9, adult: Code(s): E66.01 - Morbid (severe) obesity due to excess calories; Z68.41 - Body mass index [BMI] 40.0-44.9, adult Status: Acute (5) Anxiety: Code(s): F41.9 - Anxiety disorder, unspecified Status: Chronic (6) Depression: Code(s): F32.A - Depression, unspecified Status: Chronic (7) Abdominal pain: Qualifiers: Abdominal location: generalized Qualified Code(s): R10.84 - Generalized abdominal pain Code(s): R10.9 - Unspecified abdominal pain Status: Acute DS: Summary Hospital Course Hospital Course: This is a 43-year-old male patient who was admitted to the hospital for abdominal pain with CT imaging concerning for ileus versus enteritis. Patient he vomiting before coming to the hospital. He states that he has pain like this once before he had gallbladder problems has had his gallbladder removed in November this is the 1st recurrent similar symptoms since that. Patient reported that had significant abdominal pain nausea vomiting and a few episodes of diarrhea. He had improvement with some bowel rest and was able to tolerate regular diet. He has not needed IV pain medicines since around midnight. Tylenol assisted with his last bout of abdominal pain. He has had no more nausea since admission. He has had bowel movement and has bowel sounds throughout all 4 quadrants. Blood cultures are in process and initially negative. Patient requesting discharge today as he is feeling much better than he has in several days. Return precautions discussed and patient discharged with prescription for Zofran and instruction on Tylenol and ibuprofen p.r.n. for pain. Status at Discharge Cognitive/behavioral status at discharge: awake alert oriented and pleasant Functional status at discharge: independent ambulation Overall status at discharge: patient is progressing back to baseline Time Spent with Patient Time attestation: Total time spent providing and/or coordinating discharge services: 45 minutes Time spent: Greater than 30 minutes Exam Narrative: GENERAL: Well-appearing, well-nourished, and in no acute distress. HEAD: Normocephalic, atraumatic. ENT:? Mucous membranes moist. CHEST: Clear to auscultation.? No respiratory distress. HEART: Regular rate and rhythm. ? Normal peripheral pulses. ABDOMEN: Soft, obese, nontender, nondistended. active to mildly hyperactive bowel sounds in all 4 quadrants EXTREMITIES: Normal range of motion. No peripheral edema. SKIN: Warm dry normal color NEURO: Alert and oriented x3. PSYCH: Normal mood and affect DS: Data Data Completed and Pending Completed studies during hospitalization: abdomen pelvis CT Labs on day of discharge: Labs from last 24 hours 03/14/24 05:13 WBC 4.0 L RBC 4.83 Hgb 14.1 Hct 42.4 MCV 87.8 MCH 29.2 MCHC 33.3 RDW 12.7 Plt Count 246 MPV 9.4 Immature Gran % (Auto) Not Reportable Neut % (Auto) Not Reportable Lymph % (Auto) Not Reportable [place] % (Auto) Not Reportable Eos % (Auto) Not Reportable Baso % (Auto) Not Reportable Lymph # (Auto) Not Reportable [place] # (Auto) Not Reportable Eos # (Auto) Not Reportable Baso # (Auto) Not Reportable Abs Immat Gran (auto) Not Reportable Absolute Neuts (auto) Not Reportable Absolute Nucleated RBC Not Reportable Total Counted 100 Neutrophils % (Manual) 41 L Band Neutrophils % 0 Lymphocytes % (Manual) 3
--- NOTE | 2024-03-14 14:00 | PC.NURSE ---
Patient left unit walking, accompanied by his and nurse. Discharge instructions given to patient and his . Both voiced understanding. Personal items sent home with patient. Patient left hospital property in privately owned vehicle.
--- NOTE | 2024-03-16 09:22 | PC.NURSE ---
DC call back completed, doing well, no further pain or N/V, just feeling weak, states DC instructions were gone over well and has no questions
== END 2024-03-14 14:00 | disposition home or self-care (01) ==
LOC: CHSED 22:52 → CHS2ND 03-13 03:18
PROVIDERS: Nurse Practitioner Acute Care; Admitting Provider Internal Medicine; Emergency Provider Emergency Medicine; PCP Family Medicine; Visit Provider Internal Medicine
DX: K56.7 Ileus, unspecified (principal); K52.9 Noninfective gastroenteritis and colitis, unspecified; K21.9 Gastro-esophageal reflux disease without esophagitis; I10 Essential (primary) hypertension; F12.90 Cannabis use, unspecified, uncomplicated; F41.9 Anxiety disorder, unspecified; F32.A Depression, unspecified; Z20.822 Contact with and (suspected) exposure to COVID-19; Z87.891 Personal history of nicotine dependence; K76.0 Fatty (change of) liver, not elsewhere classified; E66.01 Morbid (severe) obesity due to excess calories; Z68.37 Body mass index [BMI] 37.0-37.9, adult
CPT/HCPCS: 36415; 74177; 80053; 80061; 81001; 83036; 83605; 83690; 83735; 84484; 85025; 85610; 85730; 87040; 87637; 93005; 96361; 96372; 96374; 96375; 96376; 99285; A9270; C9113; G0378; J1650; J2270; J2405; J7030; Q9967